=== PATIENT | female | born 1975 | race Caucasian/White ===

== ENCOUNTER 2018-08-06 11:41 | Emergency (ER) | payer BC, OTHER ==
[~2018-08-06] VITALS: Ht 157.5 cm; Wt 108.9 kg
[2018-08-06 12:00] VITALS: BP 166/92
[2018-08-06] MEDS ORDERED: ZOFRAN ODT SL STA (12:00)
[2018-08-06] MEDS ORDERED: STADOL IV STA (12:00)
--- NOTE | 2018-08-06 12:01 | NUR ---
ARRIVAL PATIENT ARRIVED TO ED3 AMBULATORY, C/O OF NECK AND BACK PAIN FOR THE PAST 3 DAYS, PATIENT STATES SHE SLEPT IN A CHAIR WHILE HER DAUGHTER WAS IN THE HOSPITAL AND THINKS MAYBE HER PAIN STEMS FROM THAT, DID TAKE TYLENOL THIS MORNING AND PAIN PERSISTS, CAME TO THE ED FOR FURTHER EVAL.
[2018-08-06] MEDS ORDERED: STADOL ONE (12:06)
[2018-08-06] MEDS ORDERED: ZOFRAN ODT ONE (12:06)
[2018-08-06] MEDS ORDERED: STADOL IM STA (12:09)
--- NOTE | 2018-08-06 12:09 | ER.PDOC ---
General Chief Complaint: Back Pain/Injury Stated Complaint: NECK/BACK PAIN Time seen by MD: 12:00 Source: patient Exam Limitations: no limitations History of Present Illness Timing/Duration: this morning Severity/Quality: moderate Method of Injury: unknown Modifying Factors: improves with immobilization, improves with movement, improves with pain medication, improves with rest Associated Symptoms: muscle spasms Allergies: Coded Allergies: NSAIDS (Non-Steroidal Anti-Inflamma (Verified Allergy, Unknown, 08/06/18) Home Meds Unable to Obtain Active Prescriptions or Reported Meds Past Medical History Medical History: hypertension Surgical History: tubal LMP (females 10-50): Jun Social History Smoking: non-smoker Alcohol Use: occassionally Drug Use: none Reviewed Nursing Reviewed: Vital Signs, Abn. Noted Review of Systems All Other Systems: Reviewed and Negative Physical Exam General Appearance: No Apparent Distress, WD/WN HEENT: PERRL/EOMI, Normal ENT Inspection, TMs Normal, Pharynx Normal Neck: Limited Range of Motion, Muscle Spasm, Painful Range of Motion, Paraspinous Muscle Tender, Spinous Processes Tender, Stiff Neck, Tenderness, Tender Lateral, Tender Midline Cardiovascular/Respiratory: Regular Rate, Rhythm, No M/R/G, Normal Peripheral Pulses, No JVD, Normal Breath Sounds, No Respiratory Distress Gastrointestinal: Normal Bowel Sounds, No Organomegaly, No Pulsatile Mass, Non Tender, Soft Back: Normal Inspection, No CVA Tenderness, No Vertebral Tenderness Extremities: No Evidence of Injury, Normal Range of Motion, Non-Tender, No Pedal Edema, Pelvis Stable Neuro/Psych: Alert, basket person nml/symmetrical, mood/effect nml, No Motor/Sensory Deficits, Relexes nml Skin: Normal Color, Warm/Dry Departure Time of Disposition: 13:00 Disposition: 01 HOME, SELF-CARE Impression: Primary Impression: Cervical spondylitis with radiculitis Condition: Improved Referrals: PCP,UNKNOWN (PCP) PRIMARY CARE PROVIDER Scripts Unable to Obtain Active Prescriptions or Reported Meds Duration or Time Spent with Pa: 1 HR BENJAMIN BERMAN MD Aug 06, 2018 12:09
--- NOTE | 2018-08-06 12:20 | NUR ---
W[facility]EW[facility] PT WIRE STEWARD ARRIVED TO TAKE PT HOME
[2018-08-06 12:31] VITALS: BP 166/92
== END 2018-08-06 12:26 | disposition home or self-care (01) ==
LOC: ER 11:41
DX: M47.22 Other spondylosis with radiculopathy, cervical region (principal); Z88.6 Allergy status to analgesic agent
CPT/HCPCS: 96372; 99284; Q0162; J0585